=== PATIENT | female | born 1930 | race African-American/Black ===

== ENCOUNTER 2017-04-18 11:27 | Emergency (ER) | payer MEDICARE, OTHER, MEDICAID ==
[2017-04-18] MEDS ORDERED: PREDNISONE 20 MG TABLET PO ONE (11:52)
[2017-04-18] MEDS ORDERED: FAMOTIDINE 20 MG TABLET PO ONE (11:58)
[2017-04-18 12:40] LABS: ABSOLUTE EOSINOPHILS # (AUTO) 0.2 10^3/uL (0.0-0.6); ABSOLUTE LYMPHOCYTES (AUTO) 1.1 10^3/uL (0.5-4.7); ABSOLUTE MONOCYTES (AUTO) 0.6 10^3/uL (0.1-1.4); ABSOLUTE NEUT (AUTO) 3.3 10^3/uL (1.7-8.2); BASOPHILS % (AUTO) 0.4 % (0-2); EOSINOPHILS % (AUTO) 3.4 % (0-6); HEMATOCRIT 37.3 % (36.0-47.0); HEMOGLOBIN 12.3 g/dL (12.0-15.5); LYMPHOCYTES % (AUTO) 21.6 % (13-45); MEAN CORPUSCULAR HEMOGLOBIN 31.7 pg (27.0-33.4); MEAN CORPUSCULAR VOLUME 96 fl (80-97); MONOCYTES % (AUTO) 10.9 % (3-13); PLATELET COUNT 151 10^3/uL (150-450); RED BLOOD COUNT 3.88 10^6/uL (3.72-5.28); RED CELL DISTRIBUTION WIDTH 13.6 % (11.5-14.0); SEGMENTED NEUTROPHILS % (AUTO) 63.7 % (42-78); TOTAL CELLS COUNTED % (AUTO) 100 %; WHITE BLOOD COUNT 5.1 10^3/uL (4.0-10.5)
[2017-04-18 13:04] LABS: ALANINE AMINOTRANSFERASE 24 U/L (9-52); ALBUMIN 3.9 g/dL (3.5-5.0); ALKALINE PHOSPHATASE 85 U/L (38-126); ANION GAP 10 (5-19); ASPARTATE AMINO TRANSFERASE 20 U/L (14-36); BILIRUBIN,DIRECT 0.2 mg/dL (0.0-0.4); BILIRUBIN,TOTAL 1.2 mg/dL (0.2-1.3); BLOOD UREA NITROGEN 23 mg/dL (7-20); C-REACTIVE PROTEIN 19.5 mg/L (<10.0); CALCIUM 9.8 mg/dL (8.4-10.2); CARBON DIOXIDE 30 mmol/L (22-30); CHLORIDE 105 mmol/L (98-107); CREATINE KINASE 46 U/L (30-135); GLUCOSE 98 mg/dL (75-110); POTASSIUM 4.7 mmol/L (3.6-5.0); SODIUM 145.3 mmol/L (137-145); TOTAL PROTEIN 6.5 g/dL (6.3-8.2)
--- NOTE | 2017-04-18 13:50 | ER Document Report ---
ED Skin Rash/Insect Bite/Abscs - General Chief Complaint: Facial Swelling Stated Complaint: FACIAL SWELLING Time Seen by Provider: 04/18/17 11:46 Mode of Arrival: Ambulatory Information source: Patient, [facility] Records Notes: This 86-year-old female patient comes emergency room complaining of pain and swelling that started in her right ear 3 days ago has progressed to both sides of her face and to her anterior neck. The pain swelling and rash started after going to a few days ago. She does recall a relative giving her a wool scarf to wear as it was quite cold and windy. She reports she has since washed the scar but has not worn it again. The rash does have a burning itching sensation to it. TRAVEL OUTSIDE OF THE [place] IN LAST 30 DAYS: No - Related Data Allergies/Adverse Reactions: ascorbic acid [From Glucosamine-Chondroitin 3X] Allergy (Verified 04/18/17 11:28 ) chondroitin sulfate A sodium [From Glucosamine-Chondroitin 3X] Allergy ( Verified 04/18/17 11:28) chondroitin-msm complex no.1 [From Glucosamine-Chondroitin 3X] Allergy ( Verified 04/18/17 11:28) glucosamine sulfate sodium chloride [From Glucosamine-Chondroitin 3X] Allergy ( Verified 04/18/17 11:28) [place] frankincense extract [From Glucosamine-Chondroitin 3X] Allergy (Verified 04/18/17 11:28) manganese sulfate [From Glucosamine-Chondroitin 3X] Allergy (Verified 04/18/17 11:28) sodium borate [From Glucosamine-Chondroitin 3X] Allergy (Verified 04/18/17 11:28 ) Past Medical History - General Information source: Patient, [facility] Records - Social History Smoking Status: Never Smoker Cigarette use (# per day): No Chew tobacco use (# tins/day): No Smoking Education Provided: No Frequency of alcohol use: None Drug Abuse: None Occupation: Retired Lives with: Alone Family History: Reviewed & Not Pertinent Patient has suicidal ideation: No Patient has homicidal ideation: No - Past Medical History Cardiac Medical History: Reports: Hx Coronary Artery Disease, Hx Hypercholesterolemia, Hx Hypertension Pulmonary Medical History: Reports: Hx Asthma EENT Medical History: Reports: None Neurological Medical History: Reports: None Endocrine Medical History: Reports: None Renal/ Medical History: Reports: None GI Medical History: Reports: None Musculoskeltal Medical History: Reports Hx Arthritis Psychiatric Medical History: Reports: None Past Surgical History: Reports: Hx Cardiac Surgery - Aortic valve replacement x2 , Hx Coronary Stent, Hx Hysterectomy - Immunizations Hx Diphtheria, Pertussis, Tetanus Vaccination: Yes Hx Pneumococcal Vaccination: 04/08/09 Review of Systems - Review of Systems Constitutional: No symptoms reported EENT: See HPI Cardiovascular: No symptoms reported Respiratory: No symptoms reported Gastrointestinal: No symptoms reported Genitourinary: No symptoms reported Female Genitourinary: Post menopausal Musculoskeletal: Joint pain Skin: See HPI Hematologic/Lymphatic: No symptoms reported Neurological/Psychological: No symptoms reported Physical Exam - Vital signs Vitals: Temp Pulse Resp BP Pulse Ox 98.4 F 77 18 122/63 97 04/18/17 11:32 04/18/17 11:32 04/18/17 11:32 04/18/17 11:32 04/18/17 11:32 - General General appearance: Appears well, Alert In distress: None - HEENT Head: Normocephalic, Atraumatic Eyes: Normal Pupils: PERRL Ears: Other - The right external ear is swollen, has the same dusky reddish appearance as the face and neck in the same dry scaly skin appearance only it seems more involved within the rest of the face and neck. Tympanic membrane: Other - The right TM appears to have a small pearly white dots on it which almost looks like fungal type infection. Pharynx: Normal Neck: Other - Rash as described below under skin section - Respiratory Respiratory status: No respiratory distress Breath sounds: Normal - Cardiovascular Rhythm: Regular - Abdominal Inspection: Normal Tenderness: Nontender - Back Back: Normal - Extremities General upper extremity: Normal inspection General lower extremity: Normal inspection - Neurological Neuro grossly intact: Yes - Psychological Associated symptoms: Normal affect, Normal mood - Skin Skin Temperature: Warm Skin Moisture: Dry Skin Color: Normal Irregularity with: Rough texture-sand paper - There is a darkish reddish dry rough rash to both sides of the face and the anterior neck coming down over the clavicles more to the right side on the neck and upper chest. The rash involving the right ear is the most pronounced and there is some swelling to the external ear. This has the appearance of a rhus dermatitis-like rash without blisters yet developed. Course - Re-evaluation Re-evalutation: 04/18/17 20:53 Reevaluation perhaps 2-3 hours later after the Pepcid and prednisone, the patient states that her face feels much better and feels much less swollen. It does appear to be less reddened and less swollen. This helps confirm the diagnosis that this is a contact dermatitis related to the wall scar that she wrapped around her face and neck several days ago. - Vital Signs Vital signs: Temp Pulse Resp BP Pulse Ox 97.7 F 71 16 125/71 96 04/18/17 14:13 04/18/17 14:13 04/18/17 14:13 04/18/17 14:13 04/18/17 14:13 - Laboratory Result Diagrams: 04/18/17 12:17 04/18/17 12:17 Laboratory results interpreted by me: 04/18/17 12:17 Sodium 145.3 H BUN 23 H Creatinine 1.39 H Est GFR ( Amer) 44 L Est GFR (Non-Af Amer) 36 L C-Reactive Protein 19.5 H Discharge - Discharge Clinical Impression: Chemical induced allergic contact dermatitis Condition: Stable Disposition: HOME, SELF-CARE Additional Instructions: You have an acute contact dermatitis. We are unable to specifically say what your skin came in contact with to provoke this reaction. Based on your history it is likely something related to the wall scar few borrowed a few days ago. The treatment at this time will be high-dose oral steroids to suppress the reaction. You have been given today's dose of prednisone, you should start the prescription tomorrow. Taking Benadryl may help the itching and burning sensation. You should follow-up with your doctor tomorrow for recheck if your symptoms are any worse. RETURN TO THE EMERGENCY ROOM IF ANY NEW OR WORSENING SYMPTOMS. Prescriptions: Prednisone [Deltasone 10 mg Tablet] 10 mg PO ASDIR PRN #21 tablet PRN Reason: Referrals: GUICHO WEBB MD [Primary Care Provider] - Follow up as needed
[2017-04-18 14:14] VITALS: BP 125/71
== END 2017-04-18 14:15 | disposition home or self-care (01) ==
LOC: ER 11:27
DX: L23.5 Allergic contact dermatitis due to other chemical products (principal); I25.10 Atherosclerotic heart disease of native coronary artery without angina pectoris; E78.00 Pure hypercholesterolemia, unspecified; I10 Essential (primary) hypertension; Z90.710 Acquired absence of both cervix and uterus
CPT/HCPCS: 99283; 36415; 82550; 85025; 86140; 80053; A9270 ×2; J7512

== ENCOUNTER 2017-04-28 12:33 | Emergency (ER) | payer MEDICARE, OTHER, MEDICAID ==
[2017-04-28] MEDS ORDERED: ASPIRIN 81 MG TABLET, CHEWABLE PO ONE (13:46)
--- NOTE | 2017-04-28 14:18 | ER Document Report ---
ED Medical Screen (RME) - General Chief Complaint: Chest Tightness Stated Complaint: CHEST TIGHTNESS Time Seen by Provider: 04/28/17 13:46 Mode of Arrival: Ambulatory Information source: Patient Notes: This is an 86-year-old female with a heart disease that was sent in by her primary care physician (Dr. robyn Lozano) because of chest pain. Patient also states she has been having some left elbow pain with range of motion. Patient denies fever. TRAVEL OUTSIDE OF THE [place] IN LAST 30 DAYS: No - Related Data Allergies/Adverse Reactions: ascorbic acid [From Glucosamine-Chondroitin 3X] Allergy (Verified 04/28/17 12:34 ) chondroitin sulfate A sodium [From Glucosamine-Chondroitin 3X] Allergy ( Verified 04/28/17 12:34) chondroitin-msm complex no.1 [From Glucosamine-Chondroitin 3X] Allergy ( Verified 04/28/17 12:34) glucosamine sulfate sodium chloride [From Glucosamine-Chondroitin 3X] Allergy ( Verified 04/28/17 12:34) frankincense extract [From Glucosamine-Chondroitin 3X] Allergy (Verified 04/28/17 12:34) manganese sulfate [From Glucosamine-Chondroitin 3X] Allergy (Verified 04/28/17 12:34) sodium borate [From Glucosamine-Chondroitin 3X] Allergy (Verified 04/28/17 12:34 ) Past Medical History - Social History Frequency of alcohol use: None Drug Abuse: None - Past Medical History Cardiac Medical History: Reports: Hx Coronary Artery Disease, Hx Hypercholesterolemia, Hx Hypertension Pulmonary Medical History: Reports: Hx Asthma Renal/ Medical History: Denies: Hx Peritoneal Dialysis Musculoskeltal Medical History: Reports Hx Arthritis Psychiatric Medical History: Denies: Hx Depression Past Surgical History: Reports: Hx Cardiac Surgery - Aortic valve replacement x2 , Hx Coronary Stent, Hx Hysterectomy - Immunizations Hx Diphtheria, Pertussis, Tetanus Vaccination: Yes Physical Exam - Vital signs Vitals: Temp Pulse Resp BP Pulse Ox 98.0 F 77 16 120/62 97 04/28/17 12:52 04/28/17 12:52 04/28/17 12:52 04/28/17 12:52 04/28/17 12:52 Course - Vital Signs Vital signs: Temp Pulse Resp BP Pulse Ox 98.0 F 77 16 120/62 97 04/28/17 12:52 04/28/17 12:52 04/28/17 12:52 04/28/17 12:52 04/28/17 12:52
[2017-04-28 14:56] LABS: HEMATOCRIT 35.8 % (36.0-47.0); HEMOGLOBIN 12.2 g/dL (12.0-15.5); MEAN CORPUSCULAR HEMOGLOBIN 32.7 pg (27.0-33.4); MEAN CORPUSCULAR VOLUME 96 fl (80-97); PLATELET COUNT 151 10^3/uL (150-450); RED BLOOD COUNT 3.72 10^6/uL (3.72-5.28); RED CELL DISTRIBUTION WIDTH 14.2 % (11.5-14.0); WHITE BLOOD COUNT 9.5 10^3/uL (4.0-10.5)
[2017-04-28 15:14] LABS: ABSOLUTE LYMPHOCYTES# (MANUAL) 0.3 10^3/uL (0.5-4.7); ABSOLUTE MONOCYTES # (MANUAL) 0.3 10^3/uL (0.1-1.4); ABSOLUTE NEUTROPHILS# (MANUAL) 8.7 10^3/uL (1.7-8.2); BAND NEUTROPHILS % (MANUAL) 1 % (3-5); BASOPHILS % (MANUAL) 0 % (0-2); EOSINOPHILS % (MANUAL) 2 % (0-6); LYMPHOCYTES % (MANUAL) 3 % (13-45); MONOCYTES % (MANUAL) 3 % (3-13); SEGMENTED NEUTROPHILS % (MAN) 91 % (42-78); TOTAL CELLS COUNTED 100
[2017-04-28 15:15] LABS: ALANINE AMINOTRANSFERASE 16 U/L (9-52); ALBUMIN 3.7 g/dL (3.5-5.0); ALKALINE PHOSPHATASE 69 U/L (38-126); ANION GAP 10 (5-19); ASPARTATE AMINO TRANSFERASE 15 U/L (14-36); BILIRUBIN,DIRECT 0.4 mg/dL (0.0-0.4); BILIRUBIN,TOTAL 1.7 mg/dL (0.2-1.3); BLOOD UREA NITROGEN 31 mg/dL (7-20); CARBON DIOXIDE 25 mmol/L (22-30); CHLORIDE 105 mmol/L (98-107); CREATINE KINASE 25 U/L (30-135); GLUCOSE 178 mg/dL (75-110); POTASSIUM 4.6 mmol/L (3.6-5.0); SODIUM 140.2 mmol/L (137-145); TOTAL PROTEIN 6.4 g/dL (6.3-8.2)
[2017-04-28 15:16] LABS: OVALOCYTES SLIGHT; PLATELET COMMENT ADEQUATE; POIKILOCYTOSIS SLIGHT; TOXIC GRANULATION SLIGHT
--- NOTE | 2017-04-28 15:29 | RADIOLOGY REPORT (SQ) ---
EXAM DESCRIPTION: CHEST SINGLE VIEW COMPLETED DATE/TIME: 04/28/2017 3:22 pm REASON FOR STUDY: cp COMPARISON: 03/07/2014 EXAM PARAMETERS: NUMBER OF VIEWS: One view. TECHNIQUE: Single frontal radiographic view of the chest acquired. RADIATION DOSE: NA LIMITATIONS: None. FINDINGS: LUNGS AND PLEURA: No new opacities, masses or pneumothorax. No pleural effusion. MEDIASTINUM AND HILAR STRUCTURES: No masses. Contour normal. HEART AND VASCULAR STRUCTURES: Heart stable in size. Normal vasculature. BONES: No acute findings. HARDWARE: Stable. OTHER: No other significant finding. IMPRESSION: NO ACUTE RADIOGRAPHIC FINDING IN THE CHEST. NO SIGNIFICANT CHANGE FROM PRIOR STUDY. TECHNICAL DOCUMENTATION: JOB ID: [id number] [employer]- All Rights Reserved
--- NOTE | 2017-04-28 15:30 | RADIOLOGY REPORT (SQ) ---
EXAM DESCRIPTION: ELBOW LEFT OVER 2 VIEWS COMPLETED DATE/TIME: 04/28/2017 3:22 pm REASON FOR STUDY: left elbow pain COMPARISON: None. NUMBER OF VIEWS: Four views. TECHNIQUE: AP, lateral, and both oblique radiographic images acquired of the left elbow. LIMITATIONS: None. FINDINGS: MINERALIZATION: Normal. BONES: Irregularity of the radial head which may be secondary to osteoarthritis or nondisplaced fract ure. JOINT: Advanced osteoarthritis. Joint effusion. SOFT TISSUES: No soft tissue swelling. No foreign body. OTHER: No other significant finding. IMPRESSION: JOINT EFFUSION NOTED IN THE SETTING OF OSTEOARTHRITIS. THERE IS IRREGULARITY OF THE RAD IAL NECK WHICH COULD REPRESENT DEGENERATIVE CHANGE OR NONDISPLACED FRACTURE. CORRELATE WITH HISTORY OF TRAUMA. TECHNICAL DOCUMENTATION: JOB ID: [id number] [employer]- All Rights Reserved
[2017-04-28 15:31] LABS: CREATINE KINASE MB 0.36 ng/mL (<4.55)
[2017-04-28 15:34] LABS: TROPONIN I < 0.012 ng/mL
--- NOTE | 2017-04-28 15:34 | ER Document Report ---
ED General - General Mode of Arrival: Ambulatory Information source: Patient TRAVEL OUTSIDE OF THE [place] IN LAST 30 DAYS: No <NIKKI ORTIZ - Last Filed: 04/28/17 23:13> <CARRIE SIMMONS - Last Filed: 04/28/17 23:14> - General Chief Complaint: Chest Tightness Stated Complaint: CHEST TIGHTNESS Time Seen by Provider: 04/28/17 13:46 Notes: Patient is an 86 year old female with a history of heart disease, defibrillator , and stents x2 was sent sent to the emergency department by her PCP (Dr. Webb) complaining of chest tightness and left arm swelling and pain. Patient states she went to her PCP due to redness on her neck and her left arm swelling. Patient states her left arm began to swell 4 days ago. While at her PCP she received 30 mg of Toradol (IM) and 8mg of Decadron (IM). Patient states she has tightness in her left hand and fingers. Patient denies a fever. Patient states she is currently on a number of medications that she did not take today. (NIKKI ORTIZ) - Related Data Allergies/Adverse Reactions: ascorbic acid [From Glucosamine-Chondroitin 3X] Allergy (Verified 04/28/17 12:34 ) chondroitin sulfate A sodium [From Glucosamine-Chondroitin 3X] Allergy ( Verified 04/28/17 12:34) chondroitin-msm complex no.1 [From Glucosamine-Chondroitin 3X] Allergy ( Verified 04/28/17 12:34) glucosamine sulfate sodium chloride [From Glucosamine-Chondroitin 3X] Allergy ( Verified 04/28/17 12:34) [place] frankincense extract [From Glucosamine-Chondroitin 3X] Allergy (Verified 04/28/17 12:34) manganese sulfate [From Glucosamine-Chondroitin 3X] Allergy (Verified 04/28/17 12:34) sodium borate [From Glucosamine-Chondroitin 3X] Allergy (Verified 04/28/17 12:34 ) Past Medical History - General Information source: Patient - Social History Smoking Status: Never Smoker Frequency of alcohol use: None Drug Abuse: None Family History: Reviewed & Not Pertinent Patient has suicidal ideation: No Patient has homicidal ideation: No - Past Medical History Cardiac Medical History: Reports: Hx Coronary Artery Disease, Hx Hypercholesterolemia, Hx Hypertension Pulmonary Medical History: Reports: Hx Asthma Musculoskeltal Medical History: Reports Hx Arthritis Past Surgical History: Reports: Hx Cardiac Surgery - Aortic valve replacement x2 , Hx Coronary Stent, Hx Hysterectomy - Immunizations Hx Diphtheria, Pertussis, Tetanus Vaccination: Yes Hx Pneumococcal Vaccination: 04/08/09 <ANGEL,TAMFELIPE - Last Filed: 04/28/17 23:13> Review of Systems - Review of Systems Constitutional: No symptoms reported EENT: No symptoms reported Cardiovascular: See HPI, Chest pain - chest tightness Respiratory: No symptoms reported Gastrointestinal: No symptoms reported Genitourinary: No symptoms reported Female Genitourinary: No symptoms reported Musculoskeletal: See HPI Skin: No symptoms reported Hematologic/Lymphatic: No symptoms reported Neurological/Psychological: No symptoms reported -: Yes All other systems reviewed and negative <NIKKI ORTIZ - Last Filed: 04/28/17 23:13> Physical Exam <NIKKI ORTIZ - Last Filed: 04/28/17 23:13> <CARRIE SIMMONS - Last Filed: 04/28/17 23:14> - Vital signs Vitals: Temp Pulse Resp BP Pulse Ox 98.0 F 77 16 120/62 97 04/28/17 12:52 04/28/17 12:52 04/28/17 12:52 04/28/17 12:52 04/28/17 12:52 - Notes Notes: GENERAL: Alert, interacts well. No acute distress. HEAD: Normocephalic, atraumatic. EYES: Pupils equal, round, and reactive to light. Extraocular movements intact. ENT: Oral mucosa moist, tongue midline. NECK: Full range of motion. Supple. Trachea midline. Erythema to the right side of the neck. LUNGS: Clear to auscultation bilaterally, no wheezes, rales, or rhonchi. No respiratory distress. HEART: Regular rate and rhythm. No murmurs, gallops, or rubs. ABDOMEN: Soft, non-tender. Non-distended. Bowel sounds present in all 4 quadrants. EXTREMITIES: LUE swollen, worse to the left hand and distal forearm. Slightly decreased left radial pulse compared to the right possibly due to swelling of LUE, no difference in warmth or capillary refill compared to the right. Markings on LUE from yolie wrap that was removed around 1hr30 ago. Tender to left radial head. Moves all 4 extremities spontaneously. No cyanosis. NEUROLOGICAL: Alert and oriented x3. Normal speech. . PSYCH: Normal affect, normal mood. SKIN: Warm, dry, normal turgor. No rashes or lesions noted. (NIKKI ORTIZ) Course - Laboratory Result Diagrams: 04/28/17 14:35 04/28/17 14:35 <NIKKI ORTIZ - Last Filed: 04/28/17 23:13> - Laboratory Result Diagrams: 04/28/17 14:35 04/28/17 14:35 <CARRIE SIMMONS - Last Filed: 04/28/17 23:14> - Re-evaluation Re-evalutation: 04/28/17 19:32 CBC grossly unremarkable, CMP shows acute on chronic renal failure, not significantly changed from baseline, glucose elevated consistent with history of diabetes, cardiac enzymes negative 2, Doppler study does not show any signs of DVT. Chest x-ray grossly unremarkable, x-ray of the left elbow shows joint effusion in the setting of osteoarthritis, there is an irregularity of the radial neck which could represent degenerative change or displaced fracture, correlate with history of trauma. Palpation of the radial head does reveal significant pain and she has pain with pronation and supination. Cardiac enzymes are negative 2. EKG is nonischemic. Discussed with patient that I do not see any signs of DVT and her presentation is most consistent with a radial head fracture. Patient was placed in a long-arm posterior splint and discharged to home. Referred to orthopedics for follow-up. (CARRIE SIMMONS) - Vital Signs Vital signs: Temp Pulse Resp BP Pulse Ox 98.0 F 78 19 149/72 H 98 04/28/17 12:52 04/28/17 15:00 04/28/17 19:46 04/28/17 19:46 04/28/17 19:46 - Laboratory Laboratory results interpreted by me: 04/28/17 04/28/17 14:35 14:35 Hct 35.8 L RDW 14.2 H Seg Neuts % (Manual) 91 H Band Neutrophils % 1 L Lymphocytes % (Manual) 3 L Abs Neuts (Manual) 8.7 H Abs Lymphs (Manual) 0.3 L BUN 31 H Creatinine 1.54 H Est GFR ( Amer) 39 L Est GFR (Non-Af Amer) 32 L Glucose 178 H Total Bilirubin 1.7 H Creatine Kinase 25 L - EKG Interpretation by Me Additional EKG results interpreted by me: 04/28/17 19:32 EKG shows sinus rhythm at a rate of 75, first-degree AV block,, interventricular conduction delay, normal axis, no ST segment elevations or depressions, there are T-wave inversions in lead II, 3, aVF, V4 through V6 per my interpretation. (CARRIE SIMMONS) Procedures - Immobilization Left Posterior Arm Pre-Proc Neuro Vasc Exam: Normal Immobilizer type: Long arm posterior Performed by: RN, PCT Post-Proc Neuro Vasc Exam: Normal, Unchanged from pre-exam Alignment checked and good: Yes <CARRIE SIMMONS - Last Filed: 04/28/17 23:14> Discharge <NIKKI ORTIZ - Last Filed: 04/28/17 23:13> <CARRIE SIMMONS - Last Filed: 04/28/17 23:14> - Discharge Clinical Impression: Swelling of left elbow joint Left radial head fracture Qualifiers: Encounter type: initial encounter Fracture type: closed Fracture alignment: nondisplaced Qualified Code(s): S52.125A - Nondisplaced fracture of head of left radius, initial encounter for closed fracture Condition: Stable Disposition: HOME, SELF-CARE Additional Instructions: Radial Head Fracture You have a fracture of the radial head. This fracture involves the forearm bone, called the radius, right where it attaches to the outer side of the elbow. The fracture is usually caused by falling down and catching yourself with your hand. The initial treatment is a splint or sling, and ice packs. Usually, this fracture is not put in a cast. The major treatment goal for a radial head fracture is preserving full motion of the elbow. The elbow is immobilized just long enough for the pain and swelling to improve (a week to 10 days). Then [id number] exercises are started. The fracture is usually healed in about four weeks. Call the doctor or return at once if pain or swelling become severe, or if numbness develops in the arm. There was no blood clot (DVT) on your Ultrasound today. Referrals: GUICHO WEBB MD [Primary Care Provider] - Follow up as needed DON RAMIREZ MD [ACTIVE STAFF] - Follow up in 1 week Scribe Attestation: 04/28/17 23:14 I personally performed the services described in the documentation, reviewed and edited the documentation which was dictated to the scribe in my presence, and it accurately records my words and actions. (CRARIE SIMMONS) Scribe Documentation - Scribe Written by Scribe:: Bolivar Ochoa, 04/28/2017 15:53 acting as scribe for :: Guerda <NIKKI ORTIZ - Last Filed: 04/28/17 23:13>
--- NOTE | 2017-04-28 17:32 | RADIOLOGY REPORT (SQ) ---
EXAM DESCRIPTION: VENOUS UNILATERAL UPPER COMPLETED DATE/TIME: 04/28/2017 5:20 pm REASON FOR STUDY: left arm swelling COMPARISON: None. TECHNIQUE: Dynamic and static reddy scale and color images acquired of the left arm venous system. Se lected spectral images acquired with additional compression and augmentation maneuvers. The contralat eral subclavian vein and internal jugular vein were also imaged. Images stored on PACS. LIMITATIONS: None. FINDINGS: INTERNAL JUGULAR VEIN: Normal phasicity, compression, augmentation. No visualized echogeni c material on reddy scale. No defects on color images. Comparison opposite side normal. SUBCLAVIAN VEIN: Normal compression, augmentation. No visualized echogenic material on reddy scale. No defects on color images. AXILLARY VEIN: Normal compression, augmentation. No visualized echogenic material on reddy scale. No d efects on color images. BRACHIAL VEIN: Normal compression, augmentation. No visualized echogenic material on reddy scale. No d efects on color images. BASILIC VEIN: Normal compression, augmentation. No visualized echogenic material on reddy scale. No de fects on color images. CEPHALIC VEIN: Normal compression, augmentation. No visualized echogenic material on reddy scale. No d efects on color images. OTHER: No other significant finding. CONTRALATERAL SUBCLAVIAN VEIN AND INTERNAL JUGULAR VEIN: Normal phasicity, compression and augmentation. No visualized echogenic material on reddy scale. No de fects on color images. IMPRESSION: NO EVIDENCE DVT OR SVT IN THE LEFT ARM. TECHNICAL DOCUMENTATION: JOB ID: [id number] [employer]- All Rights Reserved
[2017-04-28 19:51] VITALS: BP 149/72
--- NOTE | 2017-04-28 19:59 | EKG REPORT ---
SEVERITY:- ABNORMAL ECG - SINUS RHYTHM FIRST DEGREE AV BLOCK IVCD, CONSIDER ATYPICAL LBBB : Confirmed by: Venancio Valentin 28-Apr-2017 19:58:13
== END 2017-04-28 19:55 | disposition home or self-care (01) ==
LOC: ER 12:33
DX: S52.125A Nondisplaced fracture of head of left radius, initial encounter for closed fracture (principal); X58.XXXA Exposure to other specified factors, initial encounter; M19.022 Primary osteoarthritis, left elbow; R07.89 Other chest pain; L53.9 Erythematous condition, unspecified; E11.22 Type 2 diabetes mellitus with diabetic chronic kidney disease; I12.9 Hypertensive chronic kidney disease with stage 1 through stage 4 chronic kidney disease, or unspecified chronic kidney disease; N18.9 Chronic kidney disease, unspecified; N17.9 Acute kidney failure, unspecified; I44.0 Atrioventricular block, first degree; I25.10 Atherosclerotic heart disease of native coronary artery without angina pectoris; J45.909 Unspecified asthma, uncomplicated; Z95.5 Presence of coronary angioplasty implant and graft; Z95.810 Presence of automatic (implantable) cardiac defibrillator; Z79.899 Other long term (current) drug therapy; Z88.8 Allergy status to other drugs, medicaments and biological substances; Z95.2 Presence of prosthetic heart valve
CPT/HCPCS: 93005; 99285; 36415; 82553; 82550; 85025; 80053; 84484; 93971; 71045; 73080; 93010; 29105; A9270

== ENCOUNTER → 2018-03-05 | Outpatient (CLI) | payer MEDICARE, OTHER, MEDICAID ==
[2018-03-05 14:44] LABS: ALANINE AMINOTRANSFERASE 18 U/L (9-52); ALBUMIN 3.8 g/dL (3.5-5.0); ALKALINE PHOSPHATASE 82 U/L (38-126); ASPARTATE AMINO TRANSFERASE 17 U/L (14-36); BILIRUBIN,DIRECT 0.2 mg/dL (0.0-0.4); BILIRUBIN,TOTAL 0.8 mg/dL (0.2-1.3); TOTAL PROTEIN 6.7 g/dL (6.3-8.2); TRIGLYCERIDES 104 mg/dL (<150)
[2018-03-05 14:56] LABS: DIRECT LDL 58 mg/dL (<100)
== END ==
LOC: LAB 13:43
PROVIDERS: ATTEND Internal Medicine Cardiovascular Disease
DX: I10 Essential (primary) hypertension (principal); I25.10 Atherosclerotic heart disease of native coronary artery without angina pectoris; E78.5 Hyperlipidemia, unspecified
CPT/HCPCS: 36415; 80061; 80076

== ENCOUNTER 2018-10-28 16:45 | Emergency (ER) | payer MEDICARE, OTHER, MEDICAID ==
[2018-10-28 16:58] VITALS: BP 158/69
[2018-10-28] MEDS ORDERED: DIPHENHYDRAMINE HCL 25 MG CAPSULE PO ONE (18:23)
[2018-10-28] MEDS ORDERED: FAMOTIDINE 20 MG TABLET PO ONE (18:23)
[2018-10-28] MEDS ORDERED: PREDNISONE 20 MG TABLET PO ONE (18:23)
--- NOTE | 2018-10-28 18:24 | ER Document Report ---
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 Patient states that the last time she was stung was many years ago but that she had an anaphylactic reaction. Patient has tried calamine lotion on the arm but has not taken any medication to prevent allergic reaction. It is now been more than 2 hours. She denies any shortness of breath, difficulty breathing, feeling of swelling to the face or airway. TRAVEL OUTSIDE OF THE [place] IN LAST 30 DAYS: No - Related Data Allergies/Adverse Reactions: ascorbic acid [From Glucosamine-Chondroitin 3X] Allergy (Verified 10/28/18 16:46) bee venom protein (honey bee) Allergy (Verified 10/28/18 18:03) chondroitin sulfate A sodium [From Glucosamine-Chondroitin 3X] Allergy (Verified 10/28/18 16:46) chondroitin-msm complex no.1 [From Glucosamine-Chondroitin 3X] Allergy (Verified 10/28/18 16:46) glucosamine sulfate sodium chloride [From Glucosamine-Chondroitin 3X] Allergy (Verified 10/28/18 16:46) frankincense extract [From Glucosamine-Chondroitin 3X] Allergy (Verified 10/28/18 16:46) manganese sulfate [From Glucosamine-Chondroitin 3X] Allergy (Verified 10/28/18 16:46) sodium borate [From Glucosamine-Chondroitin 3X] Allergy (Verified 10/28/18 16:46) Past Medical History - General Information source: Patient - Social History Chew tobacco use (# tins/day): No Frequency of alcohol use: None Drug Abuse: None - Past Medical History Cardiac Medical History: Reports: Hx Coronary Artery Disease, Hx Hypercholesterolemia, Hx Hypertension Pulmonary Medical History: Reports: Hx Asthma Renal/ Medical History: Denies: Hx Peritoneal Dialysis Musculoskeltal Medical History: Reports Hx Arthritis Psychiatric Medical History: Denies: Hx Depression Past Surgical History: Reports: Hx Cardiac Surgery - Aortic valve replacement x2, Hx Coronary Stent, Hx Hysterectomy - Immunizations Hx Diphtheria, Pertussis, Tetanus Vaccination: Yes Review of Systems - Review of Systems Skin: See HPI Physical Exam - Vital signs Vitals: Temp Pulse Resp BP Pulse Ox 98.0 F 97 12 158/69 H 97 10/28/18 16:52 10/28/18 16:52 10/28/18 16:52 10/28/18 16:52 10/28/18 16:52 - Notes Notes: PHYSICAL EXAMINATION: GENERAL: Well-appearing and in no acute distress. SKIN: Warm, Dry, normal turgor, small insect staying noted without erythema or localized edema to left inner elbow Course - Vital Signs Vital signs: Temp Pulse Resp BP Pulse Ox 98.0 F 97 12 158/69 H 97 10/28/18 16:52 10/28/18 16:52 10/28/18 16:52 10/28/18 16:52 10/28/18 16:52 Doctor's Discharge - Discharge Referrals: GUICHO WEBB MD [Primary Care Provider] - Follow up as needed
== END 2018-10-28 20:30 | disposition left against medical advice (07) ==
LOC: ER 16:45
DX: T63.461A Toxic effect of venom of wasps, accidental (unintentional), initial encounter (principal); X58.XXXA Exposure to other specified factors, initial encounter; I25.10 Atherosclerotic heart disease of native coronary artery without angina pectoris; E78.00 Pure hypercholesterolemia, unspecified; I10 Essential (primary) hypertension; Z95.4 Presence of other heart-valve replacement
CPT/HCPCS: 99281; A9270 ×3; J7512